=== PATIENT | male | born 1950 | race Caucasian/White ===

== ENCOUNTER 2016-11-22 21:10 | Observation (INO) | payer MEDICARE, BC ==
[~2016-11-22] VITALS: Ht 172.7 cm; Wt 85.6 kg
[2016-11-22] MEDS ORDERED: ASPIRIN 81 MG CHEW TAB ONE (22:52)
[2016-11-22 23:00] VITALS: BP_SYST 174; RESP 18; TEMP 98.2; BMI 28.7
[2016-11-22] MEDS ORDERED: ACETAMINOPHEN 325 MG TAB PO PRN (23:15)
[2016-11-22] MEDS ORDERED: ALPRAZOLAM 0.25 MG TAB PO PRN (23:15)
[2016-11-22] MEDS ORDERED: ONDANSETRON 4 MG VIAL IV PUSH PRN (23:15)
[2016-11-23 00:15] VITALS: BP_SYST 174; RESP 18; TEMP 98.2; Ht 172.7 cm; Wt 85.6 kg
[2016-11-23 03:00] VITALS: BP_SYST 119; RESP 18; TEMP 97.9
[2016-11-23 08:32] VITALS: BP_SYST 119; RESP 18; TEMP 97.9
[2016-11-23 08:48] VITALS: BP_SYST 134; RESP 18; TEMP 98.1
== END 2016-11-23 07:12 | disposition home or self-care (01) ==
LOC: ENRESERVTM → ENRESERVDT → ER 21:10 → EMR 23:07 → ENPENDDIS 23:07 → PCU 11-23 00:14
PROVIDERS: ADMIT Internal Medicine Nephrology; ATTEND Internal Medicine Nephrology
CPT/HCPCS: 36415 ×2; 70450 ×2; 71010 ×2; 80047 ×2; 80053 ×2; 80061 ×2; 81003 ×2; 82383 ×2; 82553 ×2; 82947 ×2; 84484 ×2; 85014 ×2; 85025 ×2; 85384 ×2; 85610 ×2; 85730 ×2; 93005 ×2; 99291; G0378

== ENCOUNTER 2016-11-23 18:55 | Emergency (ER) | payer MEDICARE, BC ==
[2016-11-23] MEDS ORDERED: amLODIPine 5 MG TAB PO ONE (20:20)
== END 2016-11-23 22:03 | disposition home or self-care (01) ==
LOC: ER 18:55
CPT/HCPCS: 36415; 80053; 81003; 82383; 82553; 84484; 85025; 93005